=== PATIENT | male | born 1980 | race Caucasian/White ===

== ENCOUNTER → 2022-01-01 | Outpatient (CLI) | payer OTHER ==
--- NOTE | 2022-01-01 18:52 | RAD ---
MR#: [id number] Date of Study: 01/01/2022 Ordering Physician: JORGE VAUGHAN, Referring Physician: VANGIE PRABHAKAR Tech: RT Mike Irizarry) (N) APPROVED REPORT Test Type: Exercise Stress Nurse/Tech: FARNAZ RAMIREZ Test Indications: ELEVATED TROPONIN Cardiac History: SEE EMR Medications: SEE EMR Medical History: SEE EMR Resting ECG: SR Resting Heart Rate: 61 bpm Resting Blood Pressure: 124/81mmHg Pretest Chest Pain: No chest pain Nurse/Tech Notes S1,S2, LUNGS CTA, VSS. DENIES SHORTNESS OF BREATH OR CHEST PAIN AT THIS TIME. Consent: The procedure was explained to the patient in lay terms. Informed consent was witnessed. Oumar eout was entered into [employer]. History and Stress Test performed by RT Juan C (Lilian) (N) Stress Symptoms PT TOLERATED TREADMILL TEST WELL. TARGET HEART RATE GOAL OBTAINED. PT DENIED ANY SYMPTOMS DURING TEST ING. POST EXERCISE Reason for Termination: Reached target heart rate Target HR: 153 Max HR: 178 bpm 116% of Maximum Predicted HR: 153 bpm Exercise duration: 10:59 min:sec, 4 Stage Exercise capacity: 13.4METs Max Blood Pressure: 182/79mmHg Blood Pressure response to exercise: Normal blood pressure response during stress. Heart Rate response to exercise: WNL Chest Pain: No. Arrhythmia: . EXERCISE INDUCED CHANGES NOTED, PT ESSENTIALLY RETURNED TO BASELINE EKG. INTERPRETATION Stress EKG Conclusion: No evidence of stress induced EKG changes. Imaging Protocol IMAGE PROTOCOL: Rest Tc-99m/stress Tc-99m 1 day Rest: Stress: Viability: Radiopharm.Tc99m NvixbtfonHx40b Sestamibi Dose10.5mCi 31.4mCi Duration 13min. 13min. Img Date 01/01/2022 01/01/2022 Inj-Img Paam78pxt. 60min. Post-Injection Exercise: 1 minute Rest Admin Site:IV - Right AntecubitalAdministrator:RT Mike Cook)(N) Stress Admin Site: IV - Right AntecubitalAdministrator: Nicki Evans, RT (R)(N) STRESS DATA End Diast. Vol.107.0mlLVEDV index BSA51.0ml End Syst. Vol.33.0mlLVESV index BSA16.0ml Myocardial Xlhb164.0gEject. Bkbmqfaa15.0% Stress Scores Regional WT0.00Summed WT0.00 Regional WM0.00Summed WM1.00 The rest and stress images show normal perfusion, normal contraction and thickening. LV Perf. Quant 17 Seg. SSS0.00 17 Seg. SRS0.00 17 Seg. SDS0.00 Stress Defect Extent (% LAD)0.00Rest Defect Extent (% LAD)0.00Rev. Defect Extent (% LAD)0.00 Stress Defect Extent (% LCX) 0.00Rest Defect Extent (% LCX)0.00Rev. Defect Extent (% LCX)0.00 Stress Defect Extent (% RCA)0.00Rest Defect Extent (% RCA)0.00Rev. Defect Extent (% RCA)0.00 Stress Defect Extent (% ABRAN)0.00Rest Defect Extent (% ABRAN)0.00Rev. Defect Extent (% ABRAN)0.00 Other Information Quality:Average Risk Assessment: Low Risk Conclusion 1. No evidence of EKG changes with stress testing. 2. Good exercise capacity at 13 Mets achieved. 3. Normal perfusion at stress/rest. 4. Low risk study. 5. EF > 60%. Signed by : Jorge Vaughan, Electronically Approved : 01/01/2022 18:51:35
--- NOTE | 2022-01-01 19:00 | CARD ---
MR#: [id number] Date of Study: 01/01/2022 Ordering Physician: LIUS MAS, Referring Physician: LUIS MAS, Tech: Alek Boateng [facility] [place] APPROVED REPORT EXAM: Two-dimensional and M-mode echocardiogram with Doppler and color Doppler. Other Information Quality : GoodHR: 61bpm Rhythm : NSR INDICATION Elevated troponin RISK FACTORS Hypertension Family History 2D DIMENSIONS Left Atrium(2D)3.6 (1.6-4.0cm)IVSd0.8 (0.7-1.1cm) Aortic Root(2D)3.3 (2.0-3.7cm)LVDd4.8 (3.9-5.9cm) LVOT Diameter1.9 (1.8-2.4cm)PWd0.8 (0.7-1.1cm) LVDs3.2 (2.5-4.0cm)FS (%) 33.3 % SV68.0 mlLVEF(%)61.9 (>50%) Aortic Valve AoV Peak Mikey.107.7cm/sAoV VTI21.8cm AO Peak GR.4.6mmHgLVOT Peak Mikey.97.5cm/s AO Mean GR.2mmHgAVA (VMAX)2.46cm2 Mitral Valve MV E Qctyrxoi66.7cm/sMV E Peak Gr.3mmHg MV DECEL [id number] A Cazjnhrb99.4cm/s MV E Mean Gr.1mmHgE/A Ratio1.5 Pulmonary Valve PV Peak Nljgbdty47.9cm/s Tricuspid Valve TR P. Mlmlendh452bd/sTR Peak Gr.21mmHg Pulmonary Vein S1 Svpwiush48.5cm/sD2 Brdxoocn62.5cm/s LEFT VENTRICLE The left ventricle is normal size. There is normal left ventricular wall thickness. The left ventricu lar systolic function is normal and the ejection fraction is within normal range. EF 55% There is nor mal LV segmental wall motion. The left ventricular diastolic function and filling is normal for age. No left ventricle thrombus noted on this study. There is no ventricular septal defect visualized. The re is no left ventricular aneurysm. There is no mass noted in the left ventricle. RIGHT VENTRICLE The right ventricle is normal size. There is normal right ventricular wall thickness. The right ventr icular systolic function is normal. ATRIA The left atrium size is normal. The right atrium size is normal. The interatrial septum is intact wit h no evidence for an atrial septal defect or patent foramen ovale as noted on 2-D or Doppler imaging. AORTIC VALVE The aortic valve is normal in structure and function. The aortic valve is trileaflet. Doppler and Col or Flow revealed no significant aortic regurgitation. There is no significant aortic valvular stenosi s. There is no aortic valvular vegetation. MITRAL VALVE The mitral valve is normal in structure and function. There is no evidence of mitral valve prolapse. There is no mitral valve stenosis. Doppler and Color-flow revealed trace mitral regurgitation. TRICUSPID VALVE The tricuspid valve is normal in structure and function. Doppler and Color Flow revealed trace tricus pid regurgitation. There is no tricuspid valve prolapse or vegetation. There is no tricuspid valve st enosis. PULMONIC VALVE The pulmonary valve is normal in structure and function. Doppler and Color Flow revealed no pulmonic valvular regurgitation. There is no pulmonic valvular stenosis. GREAT VESSELS The aortic root is normal in size. The ascending aorta is normal in size. The pulmonary artery is nor mal. The IVC is normal in size and collapses >50% with inspiration. PERICARDIAL EFFUSION There is no pleural effusion. There is no evidence of significant pericardial effusion. Critical Notification Critical Value: No <Conclusion> The left ventricular systolic function is normal and the ejection fraction is within normal range. EF 55% There is normal LV segmental wall motion. Signed by : Luis Mas, Electronically Approved : 01/01/2022 18:59:26
== END ==
LOC: ECHO 07:40
PROVIDERS: ATTEND Internal Medicine Cardiovascular Disease
DX: R79.89 Other specified abnormal findings of blood chemistry (principal)
CPT/HCPCS: 78452; 93017; 93306; A9500; C8929

== ENCOUNTER → 2022-01-01 | Outpatient (CLI) | payer OTHER ==
--- NOTE | 2022-01-01 14:02 | KCIC ---
EXAM: CT CORONARY CALCIUM SCORING. HISTORY: Coronary risk factors. Calcium scoring is requested. COMPARISON: None. FINDINGS: Limited noncontrast CT of the chest was performed for coronary calcium scoring. Refer to e worksheets for full detail. *One or more of the following individualized dose reduction techniques were utilized for this examination: 1. Automated exposure control. 2. Adjustment of the mA and/or kV according to patient size. 3. Use of iterative reconstruction technique. Coronary calcium scoring is as follows: LMA: 0. LAD: 0. LCX: 0. RCA: 0. PDA: 0. Total: 0. This places the patient at the 0th percentile in age- and sex-matched subjects. The included portions of the chest reveal the following. Bone windows reveal no suspicious lesions. A sclerotic lesion within a left posterior rib on image one is likely a benign bone island. Images of the upper abdomen reveal no acute abnormality. There are no pathologically enlarged mediastinal lymph nodes. There is no pleural or pericardial effu jorge l. The heart is not enlarged. There is mild wall thickening of the distal esophagus. An uncalcified nodule in the right lower lobe on image 42 measures 1.6 x 1.1 cm. This is indeterminat e. 3 additional sub-4 mm nodules are noted more superiorly in the right lower lobe. IMPRESSION: 1. Coronary calcium score 0. 2. A 1.6 cm nodule in the right lower lobe may represent an uncalcified granuloma but is indeterminat e. Comparison with any available prior imaging is recommended to assess stability. Otherwise, CT foll ow-up is suggested in 3 months. If there are risk factors, PET/CT could further evaluate. 3. Mild wall thickening of the distal esophagus may reflect peristalsis or esophagitis. Electronically signed by: Abhilash Holman MD (01/01/2022 2:00 PM) [facility]
== END ==
LOC: KCIC CT 12:51
PROVIDERS: ATTEND Internal Medicine Cardiovascular Disease
DX: R91.1 Solitary pulmonary nodule (principal); K22.89 Other specified disease of esophagus; R79.89 Other specified abnormal findings of blood chemistry; E78.5 Hyperlipidemia, unspecified; I10 Essential (primary) hypertension
CPT/HCPCS: 75571